=== PATIENT | female | born 1960 | race Caucasian/White ===

== ENCOUNTER 2016-07-29 13:58 | Emergency (ER) | payer OTHER ==
[2016-07-29 14:17] VITALS: RESP 18
[2016-07-29] MEDS ORDERED: PROPARACAINE 0.5% OPHTH DROPS 15 ML BTL LEFT EYE STA (14:28)
--- NOTE | 2016-07-29 14:53 | ED ---
Eye Problem HPI - General Chief complaint: Eye Problems Stated complaint: Left Eye Problems Time Seen by Provider: 07/29/16 14:28 Source: patient, RN notes reviewed Mode of arrival: ambulatory Limitations: no limitations - History of Present Illness Initial comments: Patient is a 56-year-old female presents to the emergency room for evaluation of left eye redness and irritation. Patient states that she does occasionally have ruptured blood vessels over her eyes. Patient states she woke up this morning and her entire eye was bright red. Patient states she's never had this before. Patient denies changes in vision. Patient states her eye is very itchy and watery. Patient denies any eye pain while moving her eye. Patient denies trauma to her eye. Patient denies getting anything in her eye. 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 Patient denies ever getting anything in her eye or rubbing her eyes after dealing with the bricklayer apprentice. Patient denies headache or dizziness. Patient denies fevers or chills. Patient denies taking blood thinners. Patient states the eye irritation and itchiness began after she noticed her eye being red. - Related Data Home Medications Medication Instructions Recorded Confirmed No Known Home Medications [No 07/29/16 07/29/16 Known Home Medications] Allergies Allergy/AdvReac Type Severity Reaction Status Date / Time No Known Allergies Allergy Unverified 07/29/16 14:29 Review of Systems ROS Statement: Those systems with pertinent positive or pertinent negative responses have been documented in the HPI. ROS Other: All systems not noted in ROS Statement are negative. Past Medical History Past Medical History: No Reported History History of Any Multi-Drug Resistant Organisms: None Reported Past Surgical History: Tubal Ligation Past Psychological History: No Psychological Hx Reported Smoking Status: Never smoker Past Alcohol Use History: Rare Past Drug Use History: None Reported General Exam - General Exam Comments Initial Comments: sitting in exam room, no distress. Limitations: no limitations General appearance: alert, in no apparent distress Head exam: Present: atraumatic, normocephalic, normal inspection Eye exam: Present: PERRL, EOMI Pupils: Present: normal accommodation Expanded Eyelids: Normal Inspection: Bilateral Pupils: Regular, Round: Bilateral Sclera/Conjunctival: Hemorrhage: Left (subconjunctival hemorrhage of the entire sclera) Anterior chamber: Normal Inspection: Bilateral ENT exam: Present: normal exam Neck exam: Present: normal inspection Respiratory exam: Absent: respiratory distress Extremities exam: Present: normal inspection Back exam: Present: normal inspection Neurological exam: Present: alert, oriented X3, CN II-XII intact, normal gait Psychiatric exam: Present: normal affect, normal mood Skin exam: Present: warm, dry, intact, normal color. Absent: rash Course Vital Signs 07/29/16 14:13 Temperature 98.5 F Pulse Rate 85 Respiratory 18 Rate Blood Pressure 109/78 O2 Sat by Pulse 100 Oximetry Medical Decision Making - Medical Decision Making patient is a 56-year-old female since emergency room evaluation of left eye redness and irritation. Patient does appear to have a subconjunctival hemorrhage. Patient's left eye was anesthetized with proparacaine drops and evaluated under was lamp with fluorescein dye. No uptake was noted. Patient advised to use [id number] artificial tears as needed for irritation. Advised patient to follow-up with network consultant care provider for reevaluation. Patient states she understands everything that was discussed with her. Return parameters discussed. Case discussed with Dr. Morales who also evaluated patient. Disposition Clinical Impression: Subconjunctival hemorrhage of left eye Disposition: HOME SELF-CARE Condition: Good Instructions: Subconjunctival Hemorrhage (ED) Additional Instructions: Apply cool compresses. Apply [id number] artificial tears as needed. Please follow-up with primary care provider or network consultant if symptoms persist. If any new symptom arises or symptoms worsen, return to ER as soon as possible. Referrals: Be Parikh MD [STAFF PHYSICIAN] - 1-2 days Time of Disposition: 14:52
[2016-07-29 15:18] VITALS: BP 140/84; PULSE 89; TEMP 98
== END 2016-07-29 15:18 | disposition home or self-care (01) ==
LOC: EC 13:58
DX: H11.32 Conjunctival hemorrhage, left eye (principal)
CPT/HCPCS: 99283